=== PATIENT | male | born 1950 | race Caucasian/White ===

== ENCOUNTER 2019-04-22 07:29 | Day surgery (SDC) | payer MEDICARE ==
[2019-04-22] MEDS ORDERED: CYCLOPENTOLATE 1% OPTH 2 ML ONE (08:15)
[2019-04-22] MEDS ORDERED: LIDOCAINE 2% MPF 5 ML VIAL ONE (08:15)
[2019-04-22] MEDS ORDERED: TETRACAINE HCL 0.5% 4ML OPTH ONE (08:16)
[2019-04-22] MEDS ORDERED: BUPIVACAINE 0.25% PF 10 ML VIAL ONE (08:16)
[2019-04-22] MEDS ORDERED: PHENYLEPHRINE 10% OPTH 5ML OPTH ONE ×2 (08:18→08:30)
[2019-04-22] MEDS ORDERED: CYCLOPENTOLATE 1% OPTH 2 ML OPTH ONE ×2 (08:18→08:30)
[2019-04-22] MEDS ORDERED: NA CHLORIDE 0.9% 500 ML ONE (08:22)
[2019-04-22] MEDS ORDERED: PHENYLEPHRINE 10% OPTH 5ML ONE (08:22)
[2019-04-22] MEDS ORDERED: BALANCED SALT IRRIG PLAIN 500 ML BTL IRR ONE (08:26)
[2019-04-22] MEDS ORDERED: NS 0.9% VIAL 10 ML ONE (08:26)
[2019-04-22] MEDS ORDERED: EPINEPHRINE/PF 1 MG/ML AMP ONE (08:26)
[2019-04-22] MEDS ORDERED: DUOVISC 1 KIT OPTH ONE (08:26)
[2019-04-22] MEDS ORDERED: MOXIFLOXACIN HCL 10 DROPS/ML **OR USE OPTH ONE (08:27)
[2019-04-22] MEDS ORDERED: LIDOCAINE HCL/PF 3.5% OPTH GEL ONE (08:41)
[2019-04-22] MEDS ORDERED: MIDAZOLAM HCL 2 MG/2 ML INJ ONE (09:07)
[2019-04-22] MEDS ORDERED: LIDOCAINE 1% MPF 2 ML AMPULE ONE (09:52)
--- NOTE | 2019-04-22 09:59 | P.BOP ---
Preoperative diagnosis: Nuclear sclerotic cataract and regular astigmatism OD Postoperative diagnosis: Same Primary procedure: Phacoemulsification with Toric IOL OD Estimated blood loss: None Anesthesia: Local (Topical with anesthesia for cataract surgery) Complications: None Implants: [id number] +24.5 Transferred to: Other (Day surgery) Condition: Good
--- NOTE | 2019-04-22 20:04 | OP ---
Surgeon: Kat Garber MD Anesthesiologist: Genet Rowe CRNA and Magdiel Gotti MD. Preoperative Diagnosis: Nuclear sclerotic cataract and regularized stigmatism OD (right eye). Operation Performed: Phacoemulsification with toric intraocular lens implant, right eye. Anesthesia: Per cataract surgery. Complications: None. Description Of Procedure: In the operating room the patient was prepped and draped in the usual ster ile fashion for ophthalmic surgery. A lid speculum was placed in the right eye. Two paracentesis si selene were made superiorly and inferiorly in the limbal cornea. Viscoat was placed in the anterior jaciel mber and a crescent blade was used to make a corneal groove and tunnel, and a keratome was used to en ter the anterior chamber. Provisc was placed in the anterior chamber and a 360 degree capsulotomy wa s performed with a cystitome. The lens was hydrodissected with BSS and rotated freely. The lens was removed with a stop and chop technique. 6.33 Phaco CDE was used to remove the lens. Residual alon x was removed with the irrigation and aspiration. Provisc was placed in the capsular bag. A VPN264 +24.5 at 177 lens was placed in the capsular bag without complications. Irrigation and aspiration wa s used to remove residual viscoelastic. The paracentesis sites were hydrated with BSS. The wound an d paracentesis sites were inspected and found to be watertight. Vigamox 0.07 cc was placed intracame rally at the end of the procedure. The eye was irrigated with balanced salt solution. The eye was p atched with a soft cotton patch and Faulkner metal shield. The patient was returned to day surgery in good condition. Comments: Akten was placed in the eye in Day surgery and irrigated out of the eye with BSS in the OR . Preservative-free 1% lidocaine was placed in the anterior chamber prior to Viscoat. Discharge Instructions: Mr. Hernadez is discharged to home in good condition and is to follow up with Vernon Garber in the morning. MITALI/YASMINE Voice ID: [id number] Report ID: [id number]
== END 2019-04-22 10:37 | disposition home or self-care (01) ==
LOC: OR 07:29
PROVIDERS: ATTEND Ophthalmology Retina Specialist
PROC: 08RJ3JZ Replacement of Right Lens with Synthetic Substitute, Percutaneous Approach (ICD-10-PCS; principal; 2019-04-22 09:05)
DX: H25.11 Age-related nuclear cataract, right eye (principal); H52.221 Regular astigmatism, right eye
CPT/HCPCS: 66984; J0171; J2250; J2001; V2630; V2787

== ENCOUNTER 2019-06-12 21:31 | Emergency (ER) | payer MEDICARE ==
[2019-06-12 22:32] LABS: Absolute Lymphocytes (CBC) 1.5 K/uL (0.7-4.9); Basophils % 0.5 % (0-1.3); Hematocrit 44.2 % (39.6-49.0); Lymphocytes % 23.3 % (15.3-44.8); MPV 7.9 fL (7.6-11.3); Protime INR 0.97; RBC Red Blood Cell Count 4.62 M/uL (4.33-5.43)
[2019-06-12 22:47] LABS: ALT/SGPT 14 U/L (12-78); AST/SGOT 16 U/L (15-37); Albumin 4.2 g/dL (3.4-5.0); Alkaline Phosphatase 89 U/L (45-117); BUN Blood Urea Nitrogen 34 mg/dL (7-18); Bicarbonate 29 mmol/L (21-32); Bilirubin Direct 0.2 mg/dL (0-0.2); Bilirubin Total 0.8 mg/dL (0.2-1.0); Glucose Level 107 mg/dL (74-106); Magnesium 2.5 mg/dL (1.8-2.4); NT PRO-BNP 40 pg/mL (<125); Potassium 4.1 mmol/L (3.5-5.1); Protein, Total 7.4 g/dL (6.4-8.2); Sodium Level 140 mmol/L (136-145); Troponin (Emerg Dept Use Only) < 0.02 ng/mL (0.0-0.045)
--- NOTE | 2019-06-13 02:00 | ER ---
Nurse's Notes [facility] Name: Carlos Hernadez Age: 68 yrs Sex: Male : 1950 Arrival Date: 06/12/2019 Time: 21:32 Bed 7 Private MD: Diagnosis: Chest pain, unspecified;Palpitations Presentation: 06/12 21:47 Presenting complaint: Patient states: chest pressure at 2100 while washing dishes. pt ak1 stated he worked outside for 2 hours today. Transition of care: patient was not received from another setting of care. Onset of symptoms was June 12, 2019. Risk Assessment: Do you want to hurt yourself or someone else? Patient reports no desire to harm self or others. Initial Sepsis Screen: Does the patient meet any 2 criteria? No. Patient's initial sepsis screen is negative. Does the patient have a suspected source of infection? No. Patient's initial sepsis screen is negative. Care prior to arrival: None. 21:47 Method Of Arrival: Wheelchair ak1 21:47 Acuity: TAYLOR 3 ak1 Triage Assessment: 21:46 General: Appears in no apparent distress. Behavior is calm, cooperative. ak1 Historical: - Allergies: 21:46 No Known Allergies; ak1 - Home Meds: 21:46 carbidopa-levodopa Oral [Active]; Trazodone Oral [Active]; ak1 - PMHx: 21:46 Parkinsons; ak1 - PSHx: 21:46 Right laproscopic shoulder surgery; right eye lens sx 04/2019; ak1 - Immunization history:: Adult Immunizations unknown. - Social history:: Smoking status: Patient/guardian denies using tobacco. - Ebola Screening: : No symptoms or risks identified at this time. Screenin:19 Abuse screen: Denies threats or abuse. Denies injuries from another. Nutritional tl1 screening: No deficits noted. Tuberculosis screening: No symptoms or risk factors identified. Fall Risk IV access (20 points). Assessment: 22:16 General: Appears in no apparent distress. comfortable. tl1 22:17 Pain: Complains of pain in chest Pain does not radiate. Quality of pain is described as tl1 pressure, Pain began suddenly, 1 hour ago. Neuro: Level of Consciousness is awake, alert, obeys commands, Oriented to person, place, time, situation. Cardiovascular: Reports chest pain, diaphoresis, shortness of breath, Capillary refill < 3 seconds Patient's skin is warm and dry. Rhythm is sinus rhythm. Respiratory: Airway is patent Trachea midline Respiratory effort is even, unlabored, Breath sounds are clear bilaterally. GI: Abdomen is non-distended, Bowel sounds present X 4 quads. Abd is soft and non tender X 4 quads. : No signs and/or symptoms were reported regarding the genitourinary system. Musculoskeletal: No deficits noted. 06/13 01:21 Reassessment: Patient and/or family updated on plan of care and expected duration. Pain tl1 level reassessed. Patient is alert, oriented x 3, equal unlabored respirations, skin warm/dry/pink. Patient denies pain at this time. Patient states feeling better. Patient states symptoms have improved. Vital Signs: 06/12 21:46 BP 149 / 94; Pulse 80; Resp 16; Temp 97; Pulse Ox 98% on R/A; Weight 81.65 kg (R); ak1 Height 5 ft. 9 in. (175.26 cm) (R); Pain 2/10; 22:16 BP 174 / 103; Pulse 77; Resp 18; Pulse Ox 98% on R/A; tl1 23:03 BP 167 / 99; Pulse 78; Resp 15; Pulse Ox 97% on R/A; Pain 2/10; tl1 06/13 00:53 BP 151 / 97; Pulse 75; Resp 17; Pulse Ox 98% on R/A; Pain 0/10; tl1 02:34 BP 152 / 93; Pulse 77; Resp 17; Temp 97.4; Pulse Ox 97% on R/A; Pain 0/10; tl1 06/12 21:46 Body Mass Index 26.58 (81.65 kg, 175.26 cm) ak1 ED Course: 06/12 21:32 Patient arrived in ED. cl3 21:46 Arm band placed on Patient placed in an exam room, on a stretcher, Patient notified of ak1 wait time. 21:48 Triage completed. ak1 21:54 Adalid Naik PA is PHCP. jr8 21:54 Jay De La Garza MD is Attending Physician. jr8 21:57 Princess Jimenez RN is Primary Nurse. tl1 22:00 Patient has correct armband on for positive identification. Bed in low position. Call tl1 light in reach. Side rails up X 1. Adult w/ patient. nuclear monitoring technician on. Pulse ox on. NIBP on. 22:14 No provider procedures requiring assistance completed. Inserted saline lock: 22 gauge tl1 in left antecubital area, using aseptic technique. Blood collected. 22:14 Patient maintains SpO2 saturation greater than 95% on room air. tl1 06/13 00:01 Chest Single View In Process Unspecified. EDMS 01:58 Rayshawn Patel MD is Referral Physician. jr8 02:33 IV discontinued, intact, bleeding controlled, No redness/swelling at site. Pressure tl1 dressing applied. Administered Medications: No medications were administered Outcome: :58 Discharge ordered by . jr8 02:33 Discharged to home ambulatory, with family. tl1 02:33 Condition: good 02:33 Discharge instructions given to patient, family, Instructed on discharge instructions, follow up and referral plans. Demonstrated understanding of instructions, follow-up care. 02:35 Patient left the ED. tl1 Signatures: Dispatcher [employer] EDLA Adalid Naik PA PA jr8 Princess Jimenez RN RN tl1 Carey Cooper RN RN ak1 Bobo Pete cl3
--- NOTE | 2019-06-13 02:01 | EDPHYS ---
Physician Documentation [facility] Name: Carlos Hernadez Age: 68 yrs Sex: Male : 1950 Arrival Date: 06/12/2019 Time: 21:32 Bed 7 Private MD: ED Physician Jay De La Garza HPI: 06/12 22:48 This 68 yrs old Male presents to ER via Wheelchair with complaints of High jr8 Blood Pressure, Chest Pain. 22:48 Onset: The symptoms/episode began/occurred acutely, today. Modifying factors: The jr8 symptoms are aggravated by. Associated signs and symptoms: Pertinent positives: lightheadedness, palpitations. The patient has not experienced similar symptoms in the past. The patient has not recently seen a physician. Patient stated that while at his sink started to feel lightheaded and then had sudden pressure in chest. Sat down and took his blood pressure. Blood pressure was good at the time but saw that his HR was elevated and felt palpitations. Stated that it was reading in the 190s. Came to ED at that time . Historical: - Allergies: 21:46 No Known Allergies; ak1 - Home Meds: 21:46 carbidopa-levodopa Oral [Active]; Trazodone Oral [Active]; ak1 - PMHx: 21:46 Parkinsons; ak1 - PSHx: 21:46 Right laproscopic shoulder surgery; right eye lens sx 04/2019; ak1 - Immunization history:: Adult Immunizations unknown. - Social history:: Smoking status: Patient/guardian denies using tobacco. - Ebola Screening: : No symptoms or risks identified at this time. ROS: 22:48 Eyes: Negative for injury, pain, redness, and discharge, ENT: Negative for injury, jr8 pain, and discharge, Neck: Negative for injury, pain, and swelling, Abdomen/GI: Negative for abdominal pain, nausea, vomiting, diarrhea, and constipation, Back: Negative for injury and pain, MS/Extremity: Negative for injury and deformity, Skin: Negative for injury, rash, and discoloration. 22:48 Respiratory: Negative for shortness of breath, cough, wheezing, and pleuritic chest pain. 22:48 Cardiovascular: Positive for chest pain, palpitations. 22:48 Neuro: Positive for near syncope. Exam: 22:48 Eyes: Pupils equal round and reactive to light, extra-ocular motions intact. Lids and jr8 lashes normal. Conjunctiva and sclera are non-icteric and not injected. Cornea within normal limits. Periorbital areas with no swelling, redness, or edema. ENT: Nares patent. No nasal discharge, no septal abnormalities noted. Tympanic membranes are normal and external auditory canals are clear. Oropharynx with no redness, swelling, or masses, exudates, or evidence of obstruction, uvula midline. Mucous membranes moist. Neck: Trachea midline, no thyromegaly or masses palpated, and no cervical lymphadenopathy. Supple, full range of motion without nuchal rigidity, or vertebral point tenderness. No Meningismus. Cardiovascular: Regular rate and rhythm with a normal S1 and S2. No gallops, murmurs, or rubs. Normal PMI, no JVD. No pulse deficits. Respiratory: Lungs have equal breath sounds bilaterally, clear to auscultation and percussion. No rales, rhonchi or wheezes noted. No increased work of breathing, no retractions or nasal flaring. Abdomen/GI: Soft, non-tender, with normal bowel sounds. No distension or tympany. No guarding or rebound. No evidence of tenderness throughout. Back: No spinal tenderness. No costovertebral tenderness. Full range of motion. Skin: Warm, dry with normal turgor. Normal color with no rashes, no lesions, and no evidence of cellulitis. MS/ Extremity: Pulses equal, no cyanosis. Neurovascular intact. Full, normal range of motion. Neuro: Awake and alert, GCS 15, oriented to person, place, time, and situation. Cranial nerves II-XII grossly intact. Motor strength 5/5 in all extremities. Sensory grossly intact. Cerebellar exam normal. Normal gait. Vital Signs: 21:46 BP 149 / 94; Pulse 80; Resp 16; Temp 97; Pulse Ox 98% on R/A; Weight 81.65 kg (R); ak1 Height 5 ft. 9 in. (175.26 cm) (R); Pain 2/10; 22:16 BP 174 / 103; Pulse 77; Resp 18; Pulse Ox 98% on R/A; tl1 23:03 BP 167 / 99; Pulse 78; Resp 15; Pulse Ox 97% on R/A; Pain 2/10; tl1 06/13 00:53 BP 151 / 97; Pulse 75; Resp 17; Pulse Ox 98% on R/A; Pain 0/10; tl1 02:34 BP 152 / 93; Pulse 77; Resp 17; Temp 97.4; Pulse Ox 97% on R/A; Pain 0/10; tl1 06/12 21:46 Body Mass Index 26.58 (81.65 kg, 175.26 cm) ak1 MDM: 06/12 21:58 Patient medically screened. jr8 06/13 01:56 Data reviewed: vital signs, nurses notes, lab test result(s), EKG, radiologic studies, jr8 plain films. Data interpreted: Pulse oximetry: on room air is 98 %. Interpretation: normal. Counseling: I had a detailed discussion with the patient and/or guardian regarding: the historical points, exam findings, and any diagnostic results supporting the discharge/admit diagnosis, lab results, radiology results, the need for outpatient follow up, a surveying technician, to return to the emergency department if symptoms worsen or persist or if there are any questions or concerns that arise at home. Response to treatment: the patient's symptoms have resolved after treatment. ED course: Patients VS stable. No acute findings on labs, cxr, or ecg. X2 troponins. Both negative. Patient without tachy arrythmia while in ED. Recommended f/u with cardiology and to possibly have Holter monitor placed. If symptoms were to happen again or he were to feel worse, to immediately come back for further evaluation. Patient good with this. 06/12 21:58 Order name: Basic Metabolic Panel [facility] 06/12 21:58 Order name: CBC with Diff [facility] 06/12 21:58 Order name: LFT's [facility] 06/12 21:58 Order name: Magnesium [facility] 06/12 21:58 Order name: NT PRO-BNP [facility] 06/12 21:58 Order name: PT-INR [facility] 06/12 21:58 Order name: Troponin (emerg Dept Use Only) [facility] 06/12 22:33 Order name: CBC with Automated Diff; Complete Time: 22:51 EDMS 06/12 22:34 Order name: Protime (+INR); Complete Time: 22:51 EDMS 06/12 22:48 Order name: Basic Metabolic Panel; Complete Time: 22:51 EDMS 06/12 22:48 Order name: Liver (Hepatic) Function; Complete Time: 22:51 EDMS 06/12 22:48 Order name: Troponin (Emerg Dept Use Only); Complete Time: 22:51 EDMS 06/12 22:48 Order name: NT PRO-BNP; Complete Time: 22:51 EDMS 06/12 22:48 Order name: Magnesium; Complete Time: 22:51 EDMS 06/12 21:58 Order name: XRAY Chest (1 view) [facility] 06/12 21:58 Order name: EKG; Complete Time: 22:32 tl1 06/12 21:58 Order name: Cardiac monitoring; Complete Time: 22:02 tl1 06/12 21:58 Order name: EKG - Nurse/Tech; Complete Time: 22:02 tl1 06/12 21:58 Order name: IV Saline Lock; Complete Time: 22:37 tl1 06/12 21:58 Order name: Labs collected and sent; Complete Time: 22:37 tl1 06/12 21:58 Order name: O2 Per Protocol; Complete Time: 22:02 tl1 06/12 21:58 Order name: O2 Sat Monitoring; Complete Time: 22:03 1 06/12 23:40 Order name: Chest Single View; Complete Time: 15:07 EDMA 06/13 00:53 Order name: Troponin (emerg Dept Use Only); Complete Time: 15:07 tl1 Administered Medications: No medications were administered Disposition: 04:23 Co-signature as Attending Physician, Jay De La Garza MD I agree with the assessment and nj plan of care. Disposition: 06/13/19 01:58 Discharged to Home. Impression: Chest pain, unspecified, Palpitations. - Condition is Stable. - Discharge Instructions: Nonspecific Chest Pain, Holter Monitoring, Palpitations. - Medication Reconciliation Form, Thank You Letter, Antibiotic Education, Prescription Opioid Use form. - Follow up: Rayshawn Patel MD; When: 1 - 2 days; Reason: Recheck today's complaints, Continuance of care, Re-evaluation by your physician. - Problem is new. - Symptoms have improved. Signatures: Dispatcher [employer] EDMS Adalid Naik PA PA jr8 Princess Jimenez RN RN tl1 Carey Cooper RN RN mi1 Jay De La Garza MD MD wa Corrections: (The following items were deleted from the chart) 02:35 01:58 06/13/2019 01:58 Discharged to Home. Impression: Chest pain, unspecified; tl1 Palpitations. Condition is Stable. Forms are Medication Reconciliation Form, Thank You Letter, Antibiotic Education, Prescription Opioid Use. Follow up: Rayshawn Patel; When: 1 - 2 days; Reason: Recheck today's complaints, Continuance of care, Re-evaluation by your physician. Problem is new. Symptoms have improved. jr8
--- NOTE | 2019-06-13 07:31 | EKG ---
Test Date: 2019-06-12 Test Time: 21:54:03 Contact Lens Polisher: NICOLASA MEASUREMENT RESULTS: Intervals: Rate: 80 WI: 202 QRSD: 136 QT: 394 QTc: 454 [place]: P: 59 WI: 202 QRS: 12 T: 30 INTERPRETIVE STATEMENTS: Normal sinus rhythm Right bundle branch block Abnormal ECG No previous ECG available for comparison Electronically Signed On 06-13-19 07:31:12 CDT by Henok Nugent
--- NOTE | 2019-06-13 08:18 | RAD REPORT ---
EXAM DESCRIPTION: RAD - Chest Single View - 06/12/2019 10:49 pm CLINICAL HISTORY: COUGH Chest pain. COMPARISON: No comparisons FINDINGS: Portable technique limits examination quality. Mild linear subsegmental atelectasis is seen in the left lung base. The lungs are otherwise clear. Th e heart is upper limit of normal in size. No displaced fractures.
== END 2019-06-13 02:35 | disposition home or self-care (01) ==
LOC: ER 21:31
DX: R00.2 Palpitations (principal); G20 Parkinson's disease; Z98.890 Other specified postprocedural states
CPT/HCPCS: 36415; 71045; 80048; 80076; 83735; 83880; 84484; 85025; 85610; 93005; 99285

== ENCOUNTER 2019-10-01 11:59 | Emergency (ER) | payer MEDICARE ==
[2019-10-01 12:59] LABS: Basophils % 0.7 % (0-1.3); Hematocrit 42.4 % (39.6-49.0); Lymphocytes % 18.4 % (15.3-44.8); MPV 7.8 fL (7.6-11.3)
[2019-10-01 13:02] LABS: Protime INR 1.04
[2019-10-01] MEDS ORDERED: PHENYLEPHRINE 0.5% NOSE 15ML NAS ONE (13:57)
--- NOTE | 2019-10-01 14:01 | ER ---
Nurse's Notes [facility] Name: Carlos Hernadez Age: 69 yrs Sex: Male : 1950 Arrival Date: 10/01/2019 Time: 12:00 Bed 26 Private MD: Elijah Devi Diagnosis: Epistaxis Presentation: 10/01 12:05 Presenting complaint: Significant other states: it started about an hour ago, he was in tw2 attic with delroy, he was holding flash light, just prior to that he had been outside and was cleaning off shelves in the wind for a long period of time and stressing and moving things because we are getting ready to move, eye surgery last week, first time has he had a nose bleed. Transition of care: patient was not received from another setting of care. Onset of symptoms was October 01, 2019. Risk Assessment: Do you want to hurt yourself or someone else? Patient reports no desire to harm self or others. Initial Sepsis Screen: Does the patient meet any 2 criteria? No. Patient's initial sepsis screen is negative. Does the patient have a suspected source of infection? No. Patient's initial sepsis screen is negative. Care prior to arrival: None. 12:05 Method Of Arrival: Ambulatory tw2 12:05 Acuity: TAYLOR 4 tw2 12:06 Note nose clamp placed on pts nose at this time. tw2 Triage Assessment: 12:08 General: Appears in no apparent distress. Behavior is cooperative. Pain: Denies pain. tw2 Historical: - Allergies: 12:08 No Known Allergies; tw2 - Home Meds: 12:08 Carbidopa-Levodopa Oral [Active]; Trazodone Oral [Active]; tw2 - PMHx: 12:08 Parkinsons; tw2 - PSHx: 12:08 Right laproscopic shoulder surgery; right eye lens sx 04/2019; tw2 - Immunization history:: Adult Immunizations Last tetanus immunization: > 10 years ago unknown. - Social history:: Smoking status: Patient/guardian denies using alcohol, street drugs. - Ebola Screening: : Patient denies travel to an Ebola-affected area in the 21 days before illness onset. - Family history:: not pertinent. Screenin:45 Abuse screen: Denies threats or abuse. Denies injuries from another. Nutritional mg2 screening: No deficits noted. Tuberculosis screening: No symptoms or risk factors identified. Fall Risk IV access (20 points). Assessment: 12:30 EENT: Nares with bleeding noted on left. Derm: Skin is intact, is healthy with good mg2 turgor, Skin is pink, warm \T\ dry. normal. Musculoskeletal: Circulation, motion, and sensation intact. Capillary refill < 3 seconds. 12:44 General: Appears in no apparent distress. comfortable, Behavior is calm, cooperative. mg2 Pain: Denies pain. Neuro: Level of Consciousness is awake, alert, obeys commands, Oriented to person, place, time, situation. Cardiovascular: Capillary refill < 3 seconds Patient's skin is warm and dry. Respiratory: Airway is patent Respiratory effort is even, unlabored, Respiratory pattern is regular, symmetrical. GI: No signs and/or symptoms were reported involving the gastrointestinal system. : No signs and/or symptoms were reported regarding the genitourinary system. 12:46 Reassessment: nasal clamp applied. bleeding controlled. mg2 14:17 Reassessment: no active bleeding noted,. Patient states symptoms have improved. mg2 Vital Signs: 12:06 BP 170 / 92; Pulse 65; Resp 19; Temp 97.6(O); Pulse Ox 99% on R/A; Weight 83.91 kg; tw2 Pain 0/10; 13:52 BP 163 / 84; Pulse 61; Resp 18; Pulse Ox 100% on R/A; Pain 0/10; mg2 14:19 BP 160 / 74; Pulse 62; Resp 17; Temp 98; Pulse Ox 100% on R/A; mg2 ED Course: 12:00 Patient arrived in ED. am2 12:01 Elijah Devi MD is Private Physician. am2 12:06 Triage completed. tw2 12:08 Arm band placed on. tw2 12:12 La Solorio MD is Attending Physician. ma2 12:29 Kyle Nicole RN is Primary Nurse. mg2 12:30 Inserted saline lock: 22 gauge in left antecubital area, using aseptic technique. Blood kj1 collected. 12:31 Basic Metabolic Panel Sent. kj1 12:31 CBC with Diff Sent. kj1 12:31 PT-INR Sent. kj1 12:45 Patient has correct armband on for positive identification. Pulse ox on. NIBP on. Door mg2 closed. 14:18 No provider procedures requiring assistance completed. IV discontinued, intact, mg2 bleeding controlled, No redness/swelling at site. Pressure dressing applied. Administered Medications: No medications were administered Outcome: 13:59 Discharge ordered by . luigi 14:19 Discharged to home ambulatory, with family. mg2 14:19 Condition: stable 14:19 Discharge instructions given to patient, family, Instructed on discharge instructions, follow up and referral plans. medication usage, Demonstrated understanding of instructions, follow-up care, medications, Prescriptions given X 1. 14:19 Patient left the ED. mg2 Signatures: Luna Ramirez, RN RN tw2 Elis Hyman am2 La Solorio MD MD ma2 Kyle Nicole RN RN mg2 Mirian Graves kj1
--- NOTE | 2019-10-01 14:02 | EDPHYS ---
Physician Documentation [facility] Name: Carlos Hernadez Age: 69 yrs Sex: Male : 1950 Arrival Date: 10/01/2019 Time: 12:00 Bed 26 Private MD: Elijah Devi ED Physician La Solorio HPI: 10/01 13:57 This 69 yrs old Male presents to ER via Ambulatory with complaints of Nose ma2 Bleed. 13:57 The patient presents with a nose bleed. Onset: The symptoms/episode began/occurred ma2 gradually, 1 day(s) ago. Associated signs and symptoms: Pertinent positives: Pertinent negatives: chest pain, lightheadedness, rhinorrhea, shortness of breath, vertigo. Severity of symptoms: At their worst the symptoms were very mild in the emergency department the symptoms have resolved. The patient has not experienced similar symptoms in the past. Historical: - Allergies: 12:08 No Known Allergies; tw2 - Home Meds: 12:08 Carbidopa-Levodopa Oral [Active]; Trazodone Oral [Active]; tw2 - PMHx: 12:08 Parkinsons; tw2 - PSHx: 12:08 Right laproscopic shoulder surgery; right eye lens sx 04/2019; tw2 - Immunization history:: Adult Immunizations Last tetanus immunization: > 10 years ago unknown. - Social history:: Smoking status: Patient/guardian denies using alcohol, street drugs. - Ebola Screening: : Patient denies travel to an Ebola-affected area in the 21 days before illness onset. - Family history:: not pertinent. ROS: 13:57 Constitutional: Negative for fever, chills, and weight loss, Neck: Negative for injury, ma2 pain, and swelling, Cardiovascular: Negative for chest pain, palpitations, and edema, Respiratory: Negative for shortness of breath, cough, wheezing, and pleuritic chest pain, Abdomen/GI: Negative for abdominal pain, nausea, diarrhea, and constipation. 13:57 All other systems are negative. Exam: 13:57 Constitutional: This is a well developed, well nourished patient who is awake, alert, ma2 and in no acute distress. Eyes: Pupils equal round and reactive to light, extra-ocular motions intact. Lids and lashes normal. Conjunctiva and sclera are non-icteric and not injected. Cornea within normal limits. Periorbital areas with no swelling, redness, or edema. ENT: Nares patent. No nasal discharge, no septal abnormalities noted. Tympanic membranes are normal and external auditory canals are clear. Oropharynx with no redness, swelling, or masses, exudates, or evidence of obstruction, uvula midline. Mucous membranes moist. Neck: Trachea midline, no thyromegaly or masses palpated, and no cervical lymphadenopathy. Supple, full range of motion without nuchal rigidity, or vertebral point tenderness. No Meningismus. Chest/axilla: Normal chest wall appearance and motion. Nontender with no deformity. No lesions are appreciated. Cardiovascular: Regular rate and rhythm with a normal S1 and S2. No gallops, murmurs, or rubs. Normal PMI, no JVD. No pulse deficits. Respiratory: Lungs have equal breath sounds bilaterally, clear to auscultation and percussion. No rales, rhonchi or wheezes noted. No increased work of breathing, no retractions or nasal flaring. Abdomen/GI: Soft, non-tender, with normal bowel sounds. No distension or tympany. No guarding or rebound. No evidence of tenderness throughout. Vital Signs: 12:06 BP 170 / 92; Pulse 65; Resp 19; Temp 97.6(O); Pulse Ox 99% on R/A; Weight 83.91 kg; tw2 Pain 0/10; 13:52 BP 163 / 84; Pulse 61; Resp 18; Pulse Ox 100% on R/A; Pain 0/10; mg2 14:19 BP 160 / 74; Pulse 62; Resp 17; Temp 98; Pulse Ox 100% on R/A; mg2 MDM: 12:12 Patient medically screened. ma2 13:57 Differential diagnosis: foreign body - resolved, foreign body - unresolved, trauma, ma2 epistaxis r/t trauma, spontaneous epistaxis. Data reviewed: vital signs, nurses notes. Counseling: I had a detailed discussion with the patient and/or guardian regarding: the historical points, exam findings, and any diagnostic results supporting the discharge/admit diagnosis, the presence of at least one elevated blood pressure reading (>120/80) during this emergency department visit, the need for outpatient follow up. Response to treatment: the patient's symptoms have resolved after treatment. 10/01 12:13 Order name: Basic Metabolic Panel wa2 10/01 12:13 Order name: CBC with Diff ma2 10/01 12:13 Order name: PT-INR wa2 10/01 12:48 Order name: Basic Metabolic Panel; Complete Time: 13:17 EDMS 10/01 13:10 Order name: CBC with Automated Diff; Complete Time: 13:17 EDMS 10/01 13:11 Order name: Protime (+INR); Complete Time: 13:17 EDMS Administered Medications: No medications were administered Disposition: 10/01/19 13:59 Discharged to Home. Impression: Epistaxis. - Condition is Stable. - Discharge Instructions: Nosebleed, [id number]. - Prescriptions for Afrin (oxymetazoline) 0.05 % Nasal Aerosol, [place] - spray 2 spray by INTRANASAL route 2 times per day; 1 Container. - Medication Reconciliation Form, Thank You Letter, Antibiotic Education, Prescription Opioid Use form. - Follow up: Private Physician; When: Tomorrow; Reason: Continuance of care. Signatures: Dispatcher [employer] Luna Alvarado RN RN tw2 La Solorio MD MD ma2 Kyle Nicole RN RN mg2 Corrections: (The following items were deleted from the chart) 14:19 13:59 10/01/2019 13:59 Discharged to Home. Impression: Epistaxis. Condition is Stable. mg2 Forms are Medication Reconciliation Form, Thank You Letter, Antibiotic Education, Prescription Opioid Use. Follow up: Private Physician; When: Tomorrow; Reason: Continuance of care. ma2
[2019-10-01 14:31] VITALS: O2SAT 100
[2019-10-01 14:33] VITALS: BP 160/74; TEMP 98
== END 2019-10-01 14:19 | disposition home or self-care (01) ==
LOC: ER 11:59
DX: R04.0 Epistaxis (principal); G20 Parkinson's disease
CPT/HCPCS: 36415; 80048; 85025; 85610; 99284